=== PATIENT | male | born 1970 | race Caucasian/White ===

== ENCOUNTER 2020-11-09 11:50 | Emergency (ER) | payer SELFPAY ==
[~2020-11-09] VITALS: Ht 172.7 cm; Wt 90.4 kg
[~2020-11-09 11:50] MED LIST: DOXY100C2 PO; INSU100I13 SQ; INSU100I17 SQ; ONDA4TAB7 PO; OXYC1TAB15 PO; TAMS0.4C97 PO
[2020-11-09 12:01] VITALS: BP 178/89
--- NOTE | 2020-11-09 12:42 | PHYS DOC ---
Past Medical History Past Medical History: Depression, Diabetes-Type II, High Cholesterol, Hyp ertension Past Surgical History: Other Additional Past Surgical Histo: HERNIA SX, GROIN SX A CHILD Smoking Status: Current Every Day Smoker Alcohol Use: None Drug Use: None General Adult EDM: Chief Complaint: SKIN PROBLEM HPI: HPI: Patient is a 50 year old male with history of uncontrolled diabetes type 2, hypertension, depression, who presents to the ED today complaining of infection on the back of his head. Patient states symptoms began 3 days ago. He states he had similar symptoms 2 months ago and had to be admitted in the hospital. Patient denies any fever. He is requesting the area to be lanced. Review of Systems: Review of Systems: Constitutional: Denies fever or chills. [] : Denies dysuria. [] Musculoskeletal: Denies back pain or joint pain. [] Integument: Reports infection to the back of the head Neurologic: Denies headache, focal weakness or sensory changes. [] Psychiatric: Denies depression or anxiety. [] Heart Score: C/O Chest Pain: No Risk Factors: Risk Factors: DM, Current or recent (<one month) smoker, HTN, HLP, family history of CAD, obesity. Risk Scores: Score 0 - 3: 2.5% MACE over next 6 weeks - Discharge Home Score 4 - 6: 20.3% MACE over next 6 weeks - Admit for Clinical Observation Score 7 - 10: 72.7% MACE over next 6 weeks - Early Invasive Strategies Current Medications: Current Medications Medications (Trade) Dose Ordered Sig/Dany Start Time Stop Time Status Last Admin Dose Admin Ceftriaxone Sodium (Rocephin Im) 1 gm 1X ONCE 11/09/20 13:00 11/09/20 13:01 Doxycycline Hyclate (Vibra-Tab) 100 mg 1X ONCE 11/09/20 13:00 11/09/20 13:01 Allergies: Allergies: Allergies Coded Allergies Type Severity Reaction Last Updated Verified No Known Drug Allergies 04/28/16 No Physical Exam: PE: Constitutional: Well developed, well nourished, no acute distress, non-toxic appearance. [] Abdomen: Bowel sounds normal, soft, no tenderness, no masses, no pulsatile masses. [] Skin: Posterior scalp with an area of multiple swollen small lesions with surrounding mild cellulitis with no fluctuance. Back: No tenderness, no CVA tenderness. [] Extremities: No tenderness, no cyanosis, no clubbing, ROM intact, no edema. [] Neurologic: Alert and oriented X 3, normal motor function, normal sensory function, no focal deficits noted. [] Psychologic: Affect normal, judgement normal, mood normal. [] Current Patient Data: Vital Signs: Vital Signs Date Time Temp Pulse Resp B/P (MAP) Pulse Ox O2 Delivery O2 Flow Rate FiO2 11/09/20 12:01 98.1 100 18 178/89 (118) 96 Room Air 98.1 EKG: EKG: [] Radiology/Procedures: Radiology/Procedures: [] Course & Med Decision Making: Course & Med Decision Making Pertinent Labs and Imaging studies reviewed. (See chart for details) This is a 50-year-old noncompliant diabetic patient with history of hypertension presenting to the ED today with cellulitis on posterior scalp, there is nothing to drain on this region. I spent some time educating patient about diabetes, hypertension, and how to care for this illness especially keeping blood glucose under control. Patient showed no interest in the education. Patient does not even have insulin at home neither does he know what insulin he is supposed to use. He is not on any medicines at home. He is very aggressive verbally when I tried talking to him about the importance of taking his medicines as prescribed. He does not have a primary care doctor. Reminded him about following up with [facility] where he was referred to in June when he was hospitalized. He was given Rocephin IM in the ED and started on doxycycline which he was discharged home with the last time he was in the hospital June 2020. He was also given prescription of Bactroban ointment. Given prescription for insulin. He refused to have his glucose taken in the ED. 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 Blood pressure was 178/89. He has no recollection of what medicine he needs to be on for his blood pressure. Dragon Disclaimer: Dragon Disclaimer: This electronic medical record was generated, in whole or in part, using a voice recognition dictation system. Departure Departure Impression: Primary Impression: Cellulitis of scalp Additional Impressions: Hypertension Qualified Codes: I10 - Essential (primary) hypertension Non-compliance Disposition: 01 DC HOME SELF CARE/HOMELESS Condition: STABLE Referrals: NO PCP (PCP) follow up with [facility] Patient Instructions: Cellulitis, [id number], Hypertension Additional Instructions: You were evaluated in the emergency room and noted to have cellulitis. One thing you may consider doing is managing your blood sugars, this will help prevent some of the skin infections you keep having. Avoid shaving the back of your head until this infection clears up and then consider using electric razor as compared to straight razors. Use the prescribed medications as ordered. Please consider following up with [facility] for management of your medical conditions. Scripts Insulin Glargine,Hum.rec.anlog (LANTUS) 100 Unit/1 Ml Vial 20 UNIT SQ HS, #100 EACH Prov: CORINNA GUTIÉRREZ APRN 11/09/20 Insulin Aspart (NOVOLOG) 100 Unit/1 Ml Vial 10 UNIT SQ TIDAC, #100 EACH Prov: CORINNA GUTIÉRREZ APRN 11/09/20 Mupirocin (MUPIROCIN OINTMENT) 22 Gm Oint...g. 1 JACK TP TID for WOUND CARE, #1 EACH Prov: CORINNA GUTIÉRREZ APRN 11/09/20 Doxycycline Hyclate (DOXYCYCLINE HYCLATE) 100 Mg Tablet 1 TAB PO BID, #20 TAB Prov: CORINNA GUTIÉRREZ APRN 11/09/20 CORINNA GUTIÉRREZ APRN Nov 09, 2020 12:42
[2020-11-09] MEDS ORDERED: DOXY100T PO (12:56)
[2020-11-09] MEDS ORDERED: INSU100V8 SQ (12:56)
[2020-11-09] MEDS ORDERED: MUPI22OI2 TP (12:56)
[2020-11-09] MEDS ORDERED: INSU100V31 SQ (12:56)
[2020-11-09] MEDS ORDERED: DOXYCYCLINE HYCLATE 100 MG TABLET PO ONE (13:00)
[2020-11-09] MEDS ORDERED: cefTRIAXone IM 1 GM VIAL IM ONE (13:00)
== END 2020-11-09 13:06 | disposition home or self-care (01) ==
LOC: ER 11:50
DX: L03.811 Cellulitis of head [any part, except face] (principal); I10 Essential (primary) hypertension; F32.9 Major depressive disorder, single episode, unspecified; E11.9 Type 2 diabetes mellitus without complications; E78.00 Pure hypercholesterolemia, unspecified; F17.200 Nicotine dependence, unspecified, uncomplicated; Z98.890 Other specified postprocedural states
CPT/HCPCS: 96372; 99283; J0696

== ENCOUNTER 2021-05-22 15:40 | Inpatient (IN) | payer OTHER ==
[~2021-05-22] VITALS: Ht 176.5 cm; Wt 103.5 kg
[~2021-05-22 15:40] MED LIST changes: -DOXY100C2 PO; +DOXY100C3 PO; +DOXY100T PO; +INSU100V31 SQ; +INSU100V8 SQ; +MUPI22OI2 TP
--- NOTE | 2021-05-22 18:37 | PHYS DOC ---
Past Medical History Past Medical History: Depression, Diabetes-Type II, High Cholesterol, Hyp ertension Past Surgical History: Other Additional Past Surgical Histo: HERNIA SX, GROIN SX A CHILD Smoking Status: Current Every Day Smoker Alcohol Use: None Drug Use: None General Adult EDM: Chief Complaint: SHORTNESS OF BREATH HPI: HPI: Patient is a 50 year old male past medical history of diabetes but not currentl y on any medications presents with a chief complaint of shortness of breath. Patient was diagnosed with COVID-19 on May 14. Patient symptoms include hot and cold flashes and shortness of breath. Shortness of breath has progressively become worse since his diagnosis. Shortness of breath with exertion as well as rest. On exam patient is becoming very dyspneic while obtaining history. He has coughing spells with deep breaths. Patient is currently febrile 100.4 and his oxygen saturation 89-91% on room air. Patient is not vaccinated against COVID-19. Review of Systems: Review of Systems: Constitutional: Denies fever or chills. [] Eyes: Denies change in visual acuity. [] HENT: Denies nasal congestion or sore throat. [] Respiratory: Denies cough or shortness of breath. [] Cardiovascular: Denies chest pain or edema. [] GI: Denies abdominal pain, nausea, vomiting, bloody stools or diarrhea. [] : Denies dysuria. [] Musculoskeletal: Denies back pain or joint pain. [] Integument: Denies rash. [] Neurologic: Denies headache, focal weakness or sensory changes. [] Endocrine: Denies polyuria or polydipsia. [] Lymphatic: Denies swollen glands. [] Psychiatric: Denies depression or anxiety. [] Heart Score: C/O Chest Pain: N/A Risk Factors: Risk Factors: DM, Current or recent (<one month) smoker, HTN, HLP, family history of CAD, obesity. Risk Scores: Score 0 - 3: 2.5% MACE over next 6 weeks - Discharge Home Score 4 - 6: 20.3% MACE over next 6 weeks - Admit for Clinical Observation Score 7 - 10: 72.7% MACE over next 6 weeks - Early Invasive Strategies Allergies: Allergies: Allergies Coded Allergies Type Severity Reaction Last Updated Verified No Known Drug Allergies 04/28/16 No Physical Exam: PE: Constitutional: Well developed, well nourished, no acute distress, non-toxic appearance. [] HENT: Normocephalic, atraumatic, bilateral external ears normal, oropharynx moist, no oral exudates, nose normal. [] Eyes: PERRLA, EOMI, conjunctiva normal, no discharge. [] Neck: Normal range of motion, no tenderness, supple, no stridor. [] Cardiovascular:Heart rate regular rhythm, no murmur [] Lungs & Thorax: Bilateral breath sounds clear to auscultation [] Abdomen: Bowel sounds normal, soft, no tenderness, no masses, no pulsatile masses. [] Skin: Warm, dry, no erythema, no rash. [] Back: No tenderness, no CVA tenderness. [] Extremities: No tenderness, no cyanosis, no clubbing, ROM intact, no edema. [] Neurologic: Alert and oriented X 3, normal motor function, normal sensory function, no focal deficits noted. [] Psychologic: Affect normal, judgement normal, mood normal. [] Current Patient Data: Vital Signs: Vital Signs Date Time Temp Pulse Resp B/P (MAP) Pulse Ox O2 Delivery O2 Flow Rate FiO2 05/22/21 18:08 100.4 92 18 159/87 (111) 92 Room Air 100.4 EKG: EKG: [] Radiology/Procedures: Radiology/Procedures: [] Impression: INDICATION: Reason: shortness of breath / Spl. Instructions: / History: . COMPARISON STUDY: None. FINDINGS: Lungs: Normal lung volume. Patchy bilateral opacities Pleura: No pleural effusion or pneumothorax. Heart and Mediastinum: The cardiomediastinal silhouette is normal. The great vessels of the thorax are normal. IMPRESSION: Patchy bilateral opacities, likely multifocal infection or edema. Course & Med Decision Making: Course & Med Decision Making Pertinent Labs and Imaging studies reviewed. (See chart for details) [] Patient was evaluated for chief complaint. Work-up consisted of laboratory analysis and radiologic imaging. Patient with a positive Covid test on the eighth. Repeat Covid test done here is positive. Chest x-ray multifocal infiltrates. Patient's oxygen saturation improved to 9495% on 2 L. Patient was treated with Decadron 10 mg IV. patient admitted to the hospitalist for further evaluation and treatment. Jeanette Disclaimer: Jeanette Disclaimer: This electronic medical record was generated, in whole or in part, using a voice recognition dictation system. Departure Departure Impression: Primary Impression: COVID-19 Additional Impression: Hypoxic Disposition: 09 ADMITTED INPATIENT Admitting Physician: JERARDO Referrals: NO PCP (PCP) SHERIN MULLEN DO May 22, 2021 18:37
[2021-05-22] MEDS ORDERED: ACETAMINOPHEN 500 MG TABLET PO ONE (18:45)
[2021-05-22] MEDS ORDERED: DEXAMETHASONE SOD PHOS 4 MG/ML VIAL IVP ONE (18:45)
[2021-05-22 19:37] LABS: BASO % 0 % (0-3); EOS % 0 % (0-3); HEMATOCRIT 42.8 % (39.0-53.0); HEMOGLOBIN 14.8 g/dL (13.0-17.5); LYMPH # 1.3 x10^3/uL (1.0-4.8); LYMPH % 24 % (24-48); MEAN CORPUSCULAR HEMOGLOBIN 30 pg (25-35); MEAN CORPUSCULAR HGB CONC 35 g/dL (31-37); MEAN CORPUSCULAR VOLUME 87 fL (79-100); MONO # 0.3 x10^3/uL (0.0-1.1); MONO % 5 % (0-9); NEUT # 4.1 x10^3/uL (1.8-7.7); NEUT % 71 % (31-73); PLATELET COUNT 218 x10^3/uL (140-400); RED BLOOD COUNT 4.95 x10^6/uL (4.30-5.70); RED CELL DISTRIBUTION WIDTH 13.3 % (11.5-14.5); WHITE BLOOD COUNT 5.7 x10^3/uL (4.0-11.0)
[2021-05-22 19:53] LABS: CALCIUM 8.5 mg/dL (8.5-10.1); GFR 78.8; POTASSIUM 3.3 mmol/L (3.5-5.1)
--- NOTE | 2021-05-22 19:58 | RAD ---
XR CHEST 1V INDICATION: Reason: shortness of breath / Spl. Instructions: / History: . COMPARISON STUDY: None. FINDINGS: Lungs: Normal lung volume. Patchy bilateral opacities Pleura: No pleural effusion or pneumothorax. Heart and Mediastinum: The cardiomediastinal silhouette is normal. The great vessels of the thorax ar e normal. IMPRESSION: Patchy bilateral opacities, likely multifocal infection or edema. Electronically signed by: Isaac Magaña MD (05/22/2021 7:55 PM) [facility] CENTERKeagan
[2021-05-22 20:00] LABS: INFLUENZA A PATIENT NEGATIVE (NEGATIVE); INFLUENZA B PATIENT NEGATIVE (NEGATIVE)
[2021-05-22 20:08] LABS: ALBUMIN/GLOBULIN RATIO 0.7 (1.0-1.7); TOTAL BILIRUBIN 0.4 mg/dL (0.2-1.0); TOTAL PROTEIN 7.5 g/dL (6.4-8.2)
[2021-05-22] MEDS ORDERED: ONDANSETRON PF 4 MG/2 ML VIAL. IVP PRN (22:00)
[2021-05-22] MEDS ORDERED: ACETAMINOPHEN 325 MG TABLET. PO PRN (22:00)
[2021-05-22 22:30] VITALS: BP 158/93
[2021-05-23] MEDS ORDERED: [UNRECOGNIZED DRUG - REMARK] (00:10)
[2021-05-23 03:00] VITALS: BP 137/77
[2021-05-23 07:00] VITALS: BP 167/92
--- NOTE | 2021-05-23 07:44 | CONS ---
DATE OF CONSULTATION: 05/23/2021 I was asked to see this 50-year-old gentleman for acute respiratory failure, COVID-19 pneumonia. HISTORY OF PRESENT ILLNESS: He is a lifelong nonsmoker. He does not have any lung disease. He has not had sleep study. He has had shortness of breath, cough for the past 2 weeks. His COVID test was positive on 05/14. His shortness of breath has been getting worse. He has cough. He has had fever and chills. PAST MEDICAL HISTORY: Diabetes mellitus, hypertension, hyperlipidemia. ALLERGIES: No known drug allergies. MEDICATIONS: Currently, he is on Tylenol. Dexamethasone was given. SOCIAL HISTORY: He is a lifelong nonsmoker. FAMILY HISTORY: No history of lung disease. REVIEW OF SYSTEMS: As mentioned as above, other systems otherwise negative. PHYSICAL EXAMINATION: GENERAL: This is an overweight gentleman. He is not in distress. VITAL SIGNS: His O2 saturation on 2 liters of oxygen is 95%, respiratory rate 16, heart rate 80, blood pressure 137/77, temperature 99. HEENT: Normocephalic, atraumatic. CARDIOVASCULAR: Regular rate and rhythm. CHEST INSPECTION: There is no accessory muscle use. ABDOMEN: Obese. EXTREMITIES: There is no edema. SKIN: No rash. NEUROLOGIC: Alert and oriented. LABORATORY DATA: I reviewed the following lab data: Chest x-ray shows bilateral infiltrate. COVID rapid test was positive. Influenza A and B negative. Sodium 135, potassium 3.3, chloride 99, CO2 of 27, BUN 11, creatinine 1, AST 24, ALT 25, alkaline phosphatase 103. WBC 5.7, hemoglobin 14.8, platelet 218. IMPRESSION: 1. Abnormal chest x-ray. 2. COVID-19 pneumonia. 3. Obesity, probable obstructive sleep apnea-hypopnea syndrome. 4. Hypertension. 5. Diabetes mellitus. PLAN AND RECOMMENDATIONS: 1. Titrate FiO2 to keep O2 saturation 92%. 2. Continue dexamethasone. He is out of the window for remdesivir. 3. I will check D-dimer. If elevated, he would need CT angiogram. 4. We will check CRP. 5. Lovenox for DVT prophylaxis. 6. Pepcid for stress ulcer prophylaxis. 7. The findings and recommendations were discussed with the patient. Thank you very much for allowing me to participate in the care of this very nice gentleman. ASHA/MARLENA/TARA DR: Lynn TID: [id number]
[2021-05-23] MEDS ORDERED: POTASSIUM CHLORIDE 20 MEQ TABLET.ER. PO ONE (09:45)
[2021-05-23] MEDS ORDERED: DEXTROSE 50% 25 GM / 50ML DISP.SYRIN. IV PRN (09:45)
[2021-05-23] MEDS: MUPIROCIN 2 % OINTMENT 22GM TUBE. TP SCH ×3 (10:00→20:38)
[2021-05-23] MEDS: ENOXAPARIN 40 MG/0.4 ML SYRINGE. SQ SCH ×2 (10:44→20:38)
[2021-05-23] MEDS: FAMOTIDINE 20 MG TABLET. PO SCH ×2 (10:45→20:37)
[2021-05-23 11:00] VITALS: BP 173/92
[2021-05-23] MEDS: INSULIN LISPRO 300 UNITS/3 ML VIAL. SQ SCH ×2 (12:59→17:11)
--- NOTE | 2021-05-23 14:22 | PDOC ---
GENERAL General: History and physical [id number] VITAL SIGNS Vital Signs/I&O: Vital Signs Date Time Temp Pulse Resp B/P (MAP) Pulse Ox O2 Delivery O2 Flow Rate FiO2 05/23/21 11:00 99.0 95 20 173/92 (119) 91 Nasal Cannula 2.0 99.0 I & O 05/22/21 05/22/21 05/23/21 15:00 23:00 07:00 Intake Total 500 ml Balance 500 ml ALLERGIES Allergies: Allergies Coded Allergies Type Severity Reaction Last Updated Verified No Known Drug Allergies 04/28/16 No MEDS Medications: Current Medications Medications (Trade) Dose Ordered Sig/Dany Route PRN Reason Start Time Stop Time Status Last Admin Dose Admin Dexamethasone Sodium Phosphate (Decadron) 10 mg 1X ONCE IVP 05/22/21 18:45 05/22/21 18:46 DC 05/22/21 19:34 Acetaminophen (Tylenol) 1,000 mg 1X ONCE PO 05/22/21 18:45 05/22/21 18:46 DC 05/22/21 19:33 Famotidine (Pepcid) 20 mg BID PO 05/23/21 09:00 05/23/21 10:45 Enoxaparin Sodium (Lovenox 40mg Syringe) 40 mg Q12HR SQ 05/23/21 09:00 05/23/21 10:44 Insulin Human Lispro (HumaLOG) 0-7 UNITS TIDWMEALS SQ 05/23/21 12:00 05/23/21 12:59 Mupirocin (Bactroban) 1 sari TID TP 05/23/21 10:00 05/23/21 10:00 Potassium Chloride (Klor-Con) 20 meq 1X ONCE PO 05/23/21 09:45 05/23/21 09:58 DC 05/23/21 10:46 LAB Lab: Laboratory Tests Test 05/22/21 19:25 05/22/21 19:28 05/23/21 08:38 05/23/21 09:00 White Blood Count 5.7 x10^3/uL (4.0-11.0) Red Blood Count 4.95 x10^6/uL (4.30-5.70) Hemoglobin 14.8 g/dL (13.0-17.5) Hematocrit 42.8 % (39.0-53.0) Mean Corpuscular Volume 87 fL (79-100) Mean Corpuscular Hemoglobin 30 pg (25-35) Mean Corpuscular Hemoglobin Concent 35 g/dL (31-37) Red Cell Distribution Width 13.3 % (11.5-14.5) Platelet Count 218 x10^3/uL (140-400) Neutrophils (%) (Auto) 71 % (31-73) Lymphocytes (%) (Auto) 24 % (24-48) Monocytes (%) (Auto) 5 % (0-9) Eosinophils (%) (Auto) 0 % (0-3) Basophils (%) (Auto) 0 % (0-3) Neutrophils # (Auto) 4.1 x10^3/uL (1.8-7.7) Lymphocytes # (Auto) 1.3 x10^3/uL (1.0-4.8) Monocytes # (Auto) 0.3 x10^3/uL (0.0-1.1) Eosinophils # (Auto) 0.0 x10^3/uL (0.0-0.7) Basophils # (Auto) 0.0 x10^3/uL (0.0-0.2) Sodium Level 135 mmol/L (136-145) L Potassium Level 3.3 mmol/L (3.5-5.1) L Chloride Level 99 mmol/L (98-107) Carbon Dioxide Level 27 mmol/L (21-32) Anion Gap 9 (6-14) Blood Urea Nitrogen 11 mg/dL (8-26) Creatinine 1.0 mg/dL (0.7-1.3) Estimated GFR (Cockcroft-Gault) 78.8 BUN/Creatinine Ratio 11 (6-20) Glucose Level 273 mg/dL (70-99) H Calcium Level 8.5 mg/dL (8.5-10.1) Total Bilirubin 0.4 mg/dL (0.2-1.0) Aspartate Amino Transferase (AST) 24 U/L (15-37) Alanine Aminotransferase (ALT) 25 U/L (16-63) Alkaline Phosphatase 103 U/L (46-116) Total Protein 7.5 g/dL (6.4-8.2) Albumin 3.0 g/dL (3.4-5.0) L Albumin/Globulin Ratio 0.7 (1.0-1.7) L Influenza Type A Antigen Negative (NEGATIVE) Influenza Type B Antigen Negative (NEGATIVE) SARS-CoV-2 Antigen (Rapid) Positive (NEGATIVE) *A Glucose (Fingerstick) 293 mg/dL (70-99) H D-Dimer (Lilian) 0.41 ug/mlFEU (0.00-0.50) C-Reactive Protein, Quantitative 201.7 mg/L (0-3.3) H Test 05/23/21 12:17 Glucose (Fingerstick) 317 mg/dL (70-99) H Laboratory Tests 05/22/21 19:25 Laboratory Tests 05/22/21 19:25 Justifications for Admission Other Justification BROOK MCCLAIN MD May 23, 2021 14:22
--- NOTE | 2021-05-23 14:59 | HP ---
ADMIT DATE: 05/22/2021 HISTORY OF PRESENT ILLNESS: This patient is a 50-year-old man who does not have a continuity source of primary care due to lack of medical insurance. He was diagnosed with COVID on 05/14. His 6-year-old daughter brought it home from school and everyone in the house has become ill including six children and 3 adults. Everybody is on the mend, but his symptoms now 10 days and worsened with increasing cough, congestion, wheezing and he just did not feel that he could keep on top of his respiratory symptoms. I am seeing him now nearly 24 hours after admission and he is feeling better with oxygen supplementation. He is happy that his fever has defervesced some as the high fevers were causing quite a bit of discomfort as well. He has also noted loose stools. The patient tells me that he was diagnosed with diabetes one year ago, but trying to find medical insurance that covered the insulin well, it was a challenge and so he has mostly been off of his medications. He was not aware of the ability to buy insulin at [facility] without a prescription. He denies any nausea, vomiting, chest pain, or palpitations. He has been up and moving about the room and his wheezing and dyspnea has improved with low dose oxygen supplementation. All other systems are reviewed and negative. PAST MEDICAL HISTORY: Diabetes, diagnosed 1 year ago for which she has not been taking any treatments regularly. MEDICATIONS: Please see the medication reconciliation form. SOCIAL HISTORY: The patient is . He has a blended family. No one in the house is vaccinated except his dxyqvi-je-gay who also developed COVID, but very mild symptoms. The patient denies any alcohol or illicit drugs. He works as an [id number] trash truck driver and is careful to mask wherever he is going. FAMILY HISTORY: Reviewed in full and noncontributory to the present illness. PHYSICAL EXAMINATION: VITAL SIGNS: Reviewed since admission and are notable for T-max of 99, respiratory rate of 18-22, heart rate is in the 80s-90s and regular. Oxygenation is 94-96% on 2 liters. Blood pressure is elevated between 150-170/90. GENERAL: He is a pleasant 50-year-old man, alert and oriented x 3, in no acute distress. HEENT: Unremarkable for acute abnormality. NECK: Soft and supple. No adenopathy or thyromegaly noted. CHEST: Bilateral equal air entry, though diminished throughout. Inspiratory and expiratory wheezes noted at the bilateral bases. HEART: S1, S2 normal, tachycardic. No murmurs or gallops are noted. ABDOMEN: Soft, nontender, nondistended. No masses or organomegaly noted. EXTREMITIES: Unremarkable for acute abnormality. LABS AND OTHER STUDIES: Admission white count is 5.7, hemoglobin is 14.8, platelet count is 218. Chemistry panel notable for a potassium level of 3.3 on admission. Glucose is 273 on admission, 317 this morning. Rapid COVID antigen is positive. Influenza A and B are negative. Chest x-ray is notable for patchy bilateral opacities consistent with COVID pneumonia. ASSESSMENT AND PLAN: Impression: A 50-year-old man now 10 days in since his COVID diagnosis, admitted with escalating symptoms including high fever and respiratory distress. He has done well with low dose oxygen supplementation. He is not meeting criteria for remdesivir given the duration since diagnosis and low oxygen requirements. He is also a poor candidate for steroids given his uncontrolled diabetes. We have restarted his insulin and will need to escalate those doses. Hopefully, depending on his progress, he may even be discharged as early as tomorrow. We are encouraging hydration and ambulation. He does not need anything else for DVT prophylaxis. The patient is a full code. LESA/MARS POWELL: Doyle TID: [id number] MTDD
[2021-05-23 15:00] VITALS: BP 161/85
[2021-05-23 19:00] VITALS: BP 152/83
[2021-05-23] MEDS: HYDROcodone/APAP 5/325MG 1 TAB TABLET PO PRN (20:37)
[2021-05-23] MEDS ORDERED: INSULIN GLARGINE SYRINGE. SQ SCH (21:00)
[2021-05-23 23:00] VITALS: BP 142/77
[2021-05-24 03:00] VITALS: BP 144/80
[2021-05-24 06:33] LABS: BASO % 0 % (0-3); EOS % 0 % (0-3); LYMPH # 1.4 x10^3/uL (1.0-4.8); LYMPH % 14 % (24-48); MEAN CORPUSCULAR HEMOGLOBIN 30 pg (25-35); MEAN CORPUSCULAR HGB CONC 34 g/dL (31-37); MEAN CORPUSCULAR VOLUME 88 fL (79-100); MONO # 0.4 x10^3/uL (0.0-1.1); MONO % 4 % (0-9); NEUT # 8.2 x10^3/uL (1.8-7.7); NEUT % 82 % (31-73); PLATELET COUNT 317 x10^3/uL (140-400); RED CELL DISTRIBUTION WIDTH 13.3 % (11.5-14.5); WHITE BLOOD COUNT 10.1 x10^3/uL (4.0-11.0)
[2021-05-24 06:57] LABS: ALBUMIN 2.7 g/dL (3.4-5.0); ALBUMIN/GLOBULIN RATIO 0.6 (1.0-1.7); CREATININE 1.1 mg/dL (0.7-1.3); GFR 70.6; POTASSIUM 4.5 mmol/L (3.5-5.1); TOTAL BILIRUBIN 0.4 mg/dL (0.2-1.0); TOTAL PROTEIN 7.4 g/dL (6.4-8.2)
[2021-05-24 07:00] VITALS: BP 152/90
--- NOTE | 2021-05-24 07:25 | PDOC ---
PULMONARY PROGRESS NOTES DATE: 05/24/21 TIME: 07:24 Subjective feels better has cough on 02 5lpm Vitals Vital Signs Date Time Temp Pulse Resp B/P (MAP) Pulse Ox O2 Delivery O2 Flow Rate FiO2 05/24/21 03:00 99.4 87 18 144/80 (101) 91 Nasal Cannula 2.0 99.4 Comments on no distress rrr no accessory muscle use abd obese Labs Laboratory Tests Test 05/22/21 19:25 05/22/21 19:28 05/23/21 08:38 05/23/21 09:00 White Blood Count 5.7 x10^3/uL (4.0-11.0) Red Blood Count 4.95 x10^6/uL (4.30-5.70) Hemoglobin 14.8 g/dL (13.0-17.5) Hematocrit 42.8 % (39.0-53.0) Mean Corpuscular Volume 87 fL (79-100) Mean Corpuscular Hemoglobin 30 pg (25-35) Mean Corpuscular Hemoglobin Concent 35 g/dL (31-37) Red Cell Distribution Width 13.3 % (11.5-14.5) Platelet Count 218 x10^3/uL (140-400) Neutrophils (%) (Auto) 71 % (31-73) Lymphocytes (%) (Auto) 24 % (24-48) Monocytes (%) (Auto) 5 % (0-9) Eosinophils (%) (Auto) 0 % (0-3) Basophils (%) (Auto) 0 % (0-3) Neutrophils # (Auto) 4.1 x10^3/uL (1.8-7.7) Lymphocytes # (Auto) 1.3 x10^3/uL (1.0-4.8) Monocytes # (Auto) 0.3 x10^3/uL (0.0-1.1) Eosinophils # (Auto) 0.0 x10^3/uL (0.0-0.7) Basophils # (Auto) 0.0 x10^3/uL (0.0-0.2) Sodium Level 135 mmol/L (136-145) Potassium Level 3.3 mmol/L (3.5-5.1) Chloride Level 99 mmol/L (98-107) Carbon Dioxide Level 27 mmol/L (21-32) Anion Gap 9 (6-14) Blood Urea Nitrogen 11 mg/dL (8-26) Creatinine 1.0 mg/dL (0.7-1.3) Estimated GFR (Cockcroft-Gault) 78.8 BUN/Creatinine Ratio 11 (6-20) Glucose Level 273 mg/dL (70-99) Calcium Level 8.5 mg/dL (8.5-10.1) Total Bilirubin 0.4 mg/dL (0.2-1.0) Aspartate Amino Transf (AST/SGOT) 24 U/L (15-37) Alanine Aminotransferase (ALT/SGPT) 25 U/L (16-63) Alkaline Phosphatase 103 U/L (46-116) Total Protein 7.5 g/dL (6.4-8.2) Albumin 3.0 g/dL (3.4-5.0) Albumin/Globulin Ratio 0.7 (1.0-1.7) Influenza Type A Antigen Negative (NEGATIVE) Influenza Type B Antigen Negative (NEGATIVE) SARS-CoV-2 Antigen (Rapid) Positive (NEGATIVE) Glucose (Fingerstick) 293 mg/dL (70-99) D-Dimer (Lilian) 0.41 ug/mlFEU (0.00-0.50) C-Reactive Protein, Quantitative 201.7 mg/L (0-3.3) Test 05/23/21 12:17 05/23/21 17:06 05/23/21 21:00 05/24/21 06:15 Glucose (Fingerstick) 317 mg/dL (70-99) 259 mg/dL (70-99) 259 mg/dL (70-99) White Blood Count 10.1 x10^3/uL (4.0-11.0) Red Blood Count 5.00 x10^6/uL (4.30-5.70) Hemoglobin 15.0 g/dL (13.0-17.5) Hematocrit 44.0 % (39.0-53.0) Mean Corpuscular Volume 88 fL (79-100) Mean Corpuscular Hemoglobin 30 pg (25-35) Mean Corpuscular Hemoglobin Concent 34 g/dL (31-37) Red Cell Distribution Width 13.3 % (11.5-14.5) Platelet Count 317 x10^3/uL (140-400) Neutrophils (%) (Auto) 82 % (31-73) Lymphocytes (%) (Auto) 14 % (24-48) Monocytes (%) (Auto) 4 % (0-9) Eosinophils (%) (Auto) 0 % (0-3) Basophils (%) (Auto) 0 % (0-3) Neutrophils # (Auto) 8.2 x10^3/uL (1.8-7.7) Lymphocytes # (Auto) 1.4 x10^3/uL (1.0-4.8) Monocytes # (Auto) 0.4 x10^3/uL (0.0-1.1) Eosinophils # (Auto) 0.0 x10^3/uL (0.0-0.7) Basophils # (Auto) 0.0 x10^3/uL (0.0-0.2) Sodium Level 138 mmol/L (136-145) Potassium Level 4.5 mmol/L (3.5-5.1) Chloride Level 102 mmol/L (98-107) Carbon Dioxide Level 26 mmol/L (21-32) Anion Gap 10 (6-14) Blood Urea Nitrogen 19 mg/dL (8-26) Creatinine 1.1 mg/dL (0.7-1.3) Estimated GFR (Cockcroft-Gault) 70.6 BUN/Creatinine Ratio 17 (6-20) Glucose Level 257 mg/dL (70-99) Calcium Level 9.0 mg/dL (8.5-10.1) Total Bilirubin 0.4 mg/dL (0.2-1.0) Aspartate Amino Transf (AST/SGOT) 31 U/L (15-37) Alanine Aminotransferase (ALT/SGPT) 25 U/L (16-63) Alkaline Phosphatase 103 U/L (46-116) Total Protein 7.4 g/dL (6.4-8.2) Albumin 2.7 g/dL (3.4-5.0) Albumin/Globulin Ratio 0.6 (1.0-1.7) Laboratory Tests Test 05/23/21 08:38 05/23/21 09:00 05/23/21 12:17 05/23/21 17:06 Glucose (Fingerstick) 293 mg/dL (70-99) 317 mg/dL (70-99) 259 mg/dL (70-99) D-Dimer (Lilian) 0.41 ug/mlFEU (0.00-0.50) C-Reactive Protein, Quantitative 201.7 mg/L (0-3.3) Test 05/23/21 21:00 05/24/21 06:15 Glucose (Fingerstick) 259 mg/dL (70-99) White Blood Count 10.1 x10^3/uL (4.0-11.0) Red Blood Count 5.00 x10^6/uL (4.30-5.70) Hemoglobin 15.0 g/dL (13.0-17.5) Hematocrit 44.0 % (39.0-53.0) Mean Corpuscular Volume 88 fL (79-100) Mean Corpuscular Hemoglobin 30 pg (25-35) Mean Corpuscular Hemoglobin Concent 34 g/dL (31-37) Red Cell Distribution Width 13.3 % (11.5-14.5) Platelet Count 317 x10^3/uL (140-400) Neutrophils (%) (Auto) 82 % (31-73) Lymphocytes (%) (Auto) 14 % (24-48) Monocytes (%) (Auto) 4 % (0-9) Eosinophils (%) (Auto) 0 % (0-3) Basophils (%) (Auto) 0 % (0-3) Neutrophils # (Auto) 8.2 x10^3/uL (1.8-7.7) Lymphocytes # (Auto) 1.4 x10^3/uL (1.0-4.8) Monocytes # (Auto) 0.4 x10^3/uL (0.0-1.1) Eosinophils # (Auto) 0.0 x10^3/uL (0.0-0.7) Basophils # (Auto) 0.0 x10^3/uL (0.0-0.2) Sodium Level 138 mmol/L (136-145) Potassium Level 4.5 mmol/L (3.5-5.1) Chloride Level 102 mmol/L (98-107) Carbon Dioxide Level 26 mmol/L (21-32) Anion Gap 10 (6-14) Blood Urea Nitrogen 19 mg/dL (8-26) Creatinine 1.1 mg/dL (0.7-1.3) Estimated GFR (Cockcroft-Gault) 70.6 BUN/Creatinine Ratio 17 (6-20) Glucose Level 257 mg/dL (70-99) Calcium Level 9.0 mg/dL (8.5-10.1) Total Bilirubin 0.4 mg/dL (0.2-1.0) Aspartate Amino Transf (AST/SGOT) 31 U/L (15-37) Alanine Aminotransferase (ALT/SGPT) 25 U/L (16-63) Alkaline Phosphatase 103 U/L (46-116) Total Protein 7.4 g/dL (6.4-8.2) Albumin 2.7 g/dL (3.4-5.0) Albumin/Globulin Ratio 0.6 (1.0-1.7) Medications Active Scripts Medications Dose Route/Sig Max Daily Dose Days Date Category [reports no home meds] 05/23/21 Reported Lantus (Insulin Glargine,Hum.rec.anlog) 100 Unit/1 Ml Vial 20 Unit SQ HS 11/09/20 Rx Novolog (Insulin Aspart) 100 Unit/1 Ml Vial 10 Unit SQ TIDAC 11/09/20 Rx Mupirocin Ointment (Mupirocin) 22 Gm Oint...g. 1 Devendra TP TID 11/09/20 Rx Novolog Flexpen (Insulin Aspart) 100 Unit/1 Ml Insuln.pen 10 Units SQ TIDAC 06/22/20 Reported Lantus Solostar (Insulin Glargine,Hum.rec.anlog) 100 Unit/1 Ml Insuln.pen 20 Unit SQ QHS 06/22/20 Reported Impression . IMPRESSION: 1. Abnormal chest x-ray. 2. COVID-19 pneumonia. 3. Obesity, probable obstructive sleep apnea-hypopnea syndrome. 4. Hypertension. 5. Diabetes mellitus. Plan . PLAN AND RECOMMENDATIONS: 1. Titrate FiO2 to keep O2 saturation 92%. 2. Continue dexamethasone. He is out of the window for remdesivir. 3. D-dimer. nl 5. Lovenox for DVT prophylaxis. 6. Pepcid for stress ulcer prophylaxis. 7. The findings and recommendations were discussed with the patient. VIRIDIANA PUCKETT MD May 24, 2021 07:25
[2021-05-24] MEDS: ENOXAPARIN 40 MG/0.4 ML SYRINGE. SQ SCH ×2 (08:36→21:11)
[2021-05-24] MEDS: FAMOTIDINE 20 MG TABLET. PO SCH ×2 (08:36→21:11)
[2021-05-24] MEDS: MUPIROCIN 2 % OINTMENT 22GM TUBE. TP SCH ×3 (08:36→21:00)
[2021-05-24] MEDS: INSULIN LISPRO 300 UNITS/3 ML VIAL. SQ SCH ×3 (08:46→17:44)
[2021-05-24] MEDS: HYDROcodone/APAP 5/325MG 1 TAB TABLET PO PRN (08:49)
[2021-05-24 11:00] VITALS: BP 160/87
--- NOTE | 2021-05-24 11:20 | PDOC ---
GENERAL General: Patient examined chart reviewed today is hospital day 3 for this patient with acute hypoxic respiratory failure secondary to COVID-19 pneumonia. He is feeling worse overnight with more cough, congestion, sputum production, and dyspnea. He has come up on his oxygen requirements now at 5 L nasal cannula. We will augment his cough regimen appreciate subspecialty support. Sugar levels are high with his infection and the steroid treatment will increase his glargine dose. All other systems reviewed and negative Problems: (1) COVID-19 (2) Hypoxic (3) Diabetes mellitus with hyperglycemia VITAL SIGNS Vital Signs/I&O: Vital Signs Date Time Temp Pulse Resp B/P (MAP) Pulse Ox O2 Delivery O2 Flow Rate FiO2 05/24/21 09:30 Nasal Cannula 5.0 05/24/21 07:00 99.9 99 18 152/90 (110) 90 99.9 I & O 05/23/21 05/23/21 05/24/21 15:00 23:00 07:00 Intake Total 700 ml Output Total 400 ml 275 ml Balance -400 ml -275 ml 700 ml In general patient is sitting up in his bed coughing vigorously uncomfortable from dyspnea and cough HEENT exam is unremarkable for acute abnormality Chest is notable for bilateral equal air entry though diminished throughout fine inspiratory and expiratory crackles noted at the bilateral bases Heart S1-S2 normal regular rate and rhythm no murmurs or gallops are noted Abdomen soft nontender nondistended no masses organomegaly noted Extremity exam is unremarkable for acute abnormality ALLERGIES Allergies: Allergies Coded Allergies Type Severity Reaction Last Updated Verified No Known Drug Allergies 04/28/16 No MEDS Medications: Current Medications Medications (Trade) Dose Ordered Sig/Dany Start Time Stop Time Status Last Admin Dose Admin Acetaminophen (Tylenol) 650 mg PRN Q4HRS PRN 05/22/21 22:00 05/23/21 21:59 DC Acetaminophen/ Hydrocodone Bitart (Lortab 5/325) 1 tab PRN Q4HRS PRN 05/23/21 16:45 05/24/21 08:49 Benzonatate (Tessalon Perle) 100 mg [id number] 05/24/21 14:00 Dexamethasone Sodium Phosphate (Decadron) 10 mg 1X ONCE 05/22/21 18:45 05/22/21 18:46 DC 05/22/21 19:34 Dextrose (Dextrose 50%-Water Syringe) 12.5 gm PRN Q15MIN PRN 05/23/21 09:45 Enoxaparin Sodium (Lovenox 40mg Syringe) 40 mg Q12HR 05/23/21 09:00 05/24/21 08:36 Famotidine (Pepcid) 20 mg BID 05/23/21 09:00 05/24/21 08:36 Guaifenesin/ Codeine Phosphate (Robitussin Ac) 5 ml PRN Q6HRS PRN 05/24/21 11:00 Insulin Glargine (Lantus Syringe) 30 unit HS 05/24/21 21:00 Insulin Human Lispro (HumaLOG) 0-7 UNITS TIDWMEALS 05/23/21 12:00 05/24/21 08:46 Mupirocin (Bactroban) 1 sari TID 05/23/21 10:00 05/24/21 08:36 Ondansetron HCl (Zofran) 4 mg PRN Q8HRS PRN 05/22/21 22:00 05/23/21 21:59 DC Potassium Chloride (Klor-Con) 20 meq 1X ONCE 05/23/21 09:45 05/23/21 09:58 DC 05/23/21 10:46 Current Medications Medications (Trade) Dose Ordered Sig/Dany Route PRN Reason Start Time Stop Time Status Last Admin Dose Admin Insulin Human Lispro (HumaLOG) 0-7 UNITS TIDWMEALS SQ 05/23/21 12:00 05/24/21 08:46 Insulin Glargine (Lantus Syringe) 20 unit HS SQ 05/23/21 21:00 05/24/21 10:51 DC 05/23/21 21:12 Acetaminophen/ Hydrocodone Bitart (Lortab 5/325) 1 tab PRN Q4HRS PRN PO PAIN 05/23/21 16:45 05/24/21 08:49 LAB Lab: Laboratory Tests Test 05/23/21 12:17 05/23/21 17:06 05/23/21 21:00 05/24/21 06:15 Glucose (Fingerstick) 317 mg/dL (70-99) H 259 mg/dL (70-99) H 259 mg/dL (70-99) H White Blood Count 10.1 x10^3/uL (4.0-11.0) Red Blood Count 5.00 x10^6/uL (4.30-5.70) Hemoglobin 15.0 g/dL (13.0-17.5) Hematocrit 44.0 % (39.0-53.0) Mean Corpuscular Volume 88 fL (79-100) Mean Corpuscular Hemoglobin 30 pg (25-35) Mean Corpuscular Hemoglobin Concent 34 g/dL (31-37) Red Cell Distribution Width 13.3 % (11.5-14.5) Platelet Count 317 x10^3/uL (140-400) Neutrophils (%) (Auto) 82 % (31-73) H Lymphocytes (%) (Auto) 14 % (24-48) L Monocytes (%) (Auto) 4 % (0-9) Eosinophils (%) (Auto) 0 % (0-3) Basophils (%) (Auto) 0 % (0-3) Neutrophils # (Auto) 8.2 x10^3/uL (1.8-7.7) H Lymphocytes # (Auto) 1.4 x10^3/uL (1.0-4.8) Monocytes # (Auto) 0.4 x10^3/uL (0.0-1.1) Eosinophils # (Auto) 0.0 x10^3/uL (0.0-0.7) Basophils # (Auto) 0.0 x10^3/uL (0.0-0.2) Sodium Level 138 mmol/L (136-145) Potassium Level 4.5 mmol/L (3.5-5.1) Chloride Level 102 mmol/L (98-107) Carbon Dioxide Level 26 mmol/L (21-32) Anion Gap 10 (6-14) Blood Urea Nitrogen 19 mg/dL (8-26) Creatinine 1.1 mg/dL (0.7-1.3) Estimated GFR (Cockcroft-Gault) 70.6 BUN/Creatinine Ratio 17 (6-20) Glucose Level 257 mg/dL (70-99) H Calcium Level 9.0 mg/dL (8.5-10.1) Total Bilirubin 0.4 mg/dL (0.2-1.0) Aspartate Amino Transferase (AST) 31 U/L (15-37) Alanine Aminotransferase (ALT) 25 U/L (16-63) Alkaline Phosphatase 103 U/L (46-116) Total Protein 7.4 g/dL (6.4-8.2) Albumin 2.7 g/dL (3.4-5.0) L Albumin/Globulin Ratio 0.6 (1.0-1.7) L Test 05/24/21 07:49 Glucose (Fingerstick) 216 mg/dL (70-99) H Laboratory Tests 05/24/21 06:15 Laboratory Tests 05/24/21 06:15 ASSESSMENT & PLAN A&P Plan as noted above This note was created using [employer] and may have omissions and/or errors due to the nature of real-time voice therapist physical. Justifications for Admission Other Justification BROOK MCCLAIN MD May 24, 2021 11:20
[2021-05-24] MEDS: guaiFENesin/CODEINE 100mg/10mg 5 ML LIQUID PO PRN ×2 (11:32→17:43)
[2021-05-24] MEDS: DEXAMETHASONE SOD PHOS 4 MG/ML VIAL IVP SCH (11:32)
[2021-05-24 15:00] VITALS: BP 160/87
[2021-05-24] MEDS: BENZONATATE 100 MG CAPSULE. PO SCH ×2 (15:33→21:11)
[2021-05-24 19:00] VITALS: BP 153/80
--- NOTE | 2021-05-24 19:36 | NUR ---
Paged Dr. Encarnacion for blood sugar of 372 around 1730. Patient received at the 7 per sliding scale but no additional insulin since this RN did not receive a call back or orders.
[2021-05-24] MEDS ORDERED: INSULIN LISPRO 300 UNITS/3 ML VIAL. SQ ONE (21:00)
[2021-05-24] MEDS: INSULIN GLARGINE SYRINGE. SQ SCH (21:12)
[2021-05-24 23:00] VITALS: BP 152/95
[2021-05-25 03:00] VITALS: BP 139/85
[2021-05-25 07:00] VITALS: BP 148/85
--- NOTE | 2021-05-25 07:41 | PDOC ---
PULMONARY PROGRESS NOTES DATE: 05/25/21 TIME: 07:40 Subjective Patient not more short of air Vitals Vital Signs Date Time Temp Pulse Resp B/P (MAP) Pulse Ox O2 Delivery O2 Flow Rate FiO2 05/25/21 03:00 98.1 69 20 139/85 (103) 93 Nasal Cannula 5.0 98.1 Comments on 02 no distress rrr no accessory muscle use abd obese Labs Laboratory Tests Test 05/23/21 08:38 05/23/21 09:00 05/23/21 12:17 05/23/21 17:06 Glucose (Fingerstick) 293 mg/dL (70-99) 317 mg/dL (70-99) 259 mg/dL (70-99) D-Dimer (Lilian) 0.41 ug/mlFEU (0.00-0.50) C-Reactive Protein, Quantitative 201.7 mg/L (0-3.3) Test 05/23/21 21:00 05/24/21 06:15 05/24/21 07:49 05/24/21 12:37 Glucose (Fingerstick) 259 mg/dL (70-99) 216 mg/dL (70-99) 296 mg/dL (70-99) White Blood Count 10.1 x10^3/uL (4.0-11.0) Red Blood Count 5.00 x10^6/uL (4.30-5.70) Hemoglobin 15.0 g/dL (13.0-17.5) Hematocrit 44.0 % (39.0-53.0) Mean Corpuscular Volume 88 fL (79-100) Mean Corpuscular Hemoglobin 30 pg (25-35) Mean Corpuscular Hemoglobin Concent 34 g/dL (31-37) Red Cell Distribution Width 13.3 % (11.5-14.5) Platelet Count 317 x10^3/uL (140-400) Neutrophils (%) (Auto) 82 % (31-73) Lymphocytes (%) (Auto) 14 % (24-48) Monocytes (%) (Auto) 4 % (0-9) Eosinophils (%) (Auto) 0 % (0-3) Basophils (%) (Auto) 0 % (0-3) Neutrophils # (Auto) 8.2 x10^3/uL (1.8-7.7) Lymphocytes # (Auto) 1.4 x10^3/uL (1.0-4.8) Monocytes # (Auto) 0.4 x10^3/uL (0.0-1.1) Eosinophils # (Auto) 0.0 x10^3/uL (0.0-0.7) Basophils # (Auto) 0.0 x10^3/uL (0.0-0.2) Sodium Level 138 mmol/L (136-145) Potassium Level 4.5 mmol/L (3.5-5.1) Chloride Level 102 mmol/L (98-107) Carbon Dioxide Level 26 mmol/L (21-32) Anion Gap 10 (6-14) Blood Urea Nitrogen 19 mg/dL (8-26) Creatinine 1.1 mg/dL (0.7-1.3) Estimated GFR (Cockcroft-Gault) 70.6 BUN/Creatinine Ratio 17 (6-20) Glucose Level 257 mg/dL (70-99) Calcium Level 9.0 mg/dL (8.5-10.1) Total Bilirubin 0.4 mg/dL (0.2-1.0) Aspartate Amino Transf (AST/SGOT) 31 U/L (15-37) Alanine Aminotransferase (ALT/SGPT) 25 U/L (16-63) Alkaline Phosphatase 103 U/L (46-116) Total Protein 7.4 g/dL (6.4-8.2) Albumin 2.7 g/dL (3.4-5.0) Albumin/Globulin Ratio 0.6 (1.0-1.7) Test 05/24/21 16:49 05/24/21 20:29 05/24/21 22:54 Glucose (Fingerstick) 372 mg/dL (70-99) 393 mg/dL (70-99) 264 mg/dL (70-99) Laboratory Tests Test 05/24/21 07:49 05/24/21 12:37 05/24/21 16:49 05/24/21 20:29 Glucose (Fingerstick) 216 mg/dL (70-99) 296 mg/dL (70-99) 372 mg/dL (70-99) 393 mg/dL (70-99) Test 05/24/21 22:54 Glucose (Fingerstick) 264 mg/dL (70-99) Medications Active Scripts Medications Dose Route/Sig Max Daily Dose Days Date Category [reports no home meds] 05/23/21 Reported Lantus (Insulin Glargine,Hum.rec.anlog) 100 Unit/1 Ml Vial 20 Unit SQ HS 11/09/20 Rx Novolog (Insulin Aspart) 100 Unit/1 Ml Vial 10 Unit SQ TIDAC 11/09/20 Rx Mupirocin Ointment (Mupirocin) 22 Gm Oint...g. 1 Devendra TP TID 11/09/20 Rx Novolog Flexpen (Insulin Aspart) 100 Unit/1 Ml Insuln.pen 10 Units SQ TIDAC 06/22/20 Reported Lantus Solostar (Insulin Glargine,Hum.rec.anlog) 100 Unit/1 Ml Insuln.pen 20 Unit SQ QHS 06/22/20 Reported Impression . IMPRESSION: 1. Abnormal chest x-ray. 2. COVID-19 pneumonia. 3. Obesity, probable obstructive sleep apnea-hypopnea syndrome. 4. Hypertension. 5. Diabetes mellitus. Plan . We will continue current supportive oxygen supplementation Dexamethasone DVT prophylaxis Up to chair PLAN AND RECOMMENDATIONS: 1. Titrate FiO2 to keep O2 saturation 92%. 2. Continue dexamethasone. He is out of the window for remdesivir. 3. D-dimer. nl 5. Lovenox for DVT prophylaxis. 6. Pepcid for stress ulcer prophylaxis. 7. The findings and recommendations were discussed with the patient. SWEETIE SALES MD May 25, 2021 07:40
[2021-05-25 08:59] LABS: BASO # 0.1 x10^3/uL (0.0-0.2); BASO % 1 % (0-3); EOS % 0 % (0-3); HEMOGLOBIN 14.8 g/dL (13.0-17.5); LYMPH # 1.2 x10^3/uL (1.0-4.8); LYMPH % 16 % (24-48); MEAN CORPUSCULAR HEMOGLOBIN 30 pg (25-35); MEAN CORPUSCULAR HGB CONC 34 g/dL (31-37); MEAN CORPUSCULAR VOLUME 88 fL (79-100); MONO # 0.6 x10^3/uL (0.0-1.1); MONO % 8 % (0-9); NEUT # 5.5 x10^3/uL (1.8-7.7); NEUT % 75 % (31-73); PLATELET COUNT 332 x10^3/uL (140-400); RED BLOOD COUNT 4.87 x10^6/uL (4.30-5.70); RED CELL DISTRIBUTION WIDTH 13.1 % (11.5-14.5); WHITE BLOOD COUNT 7.3 x10^3/uL (4.0-11.0)
[2021-05-25] MEDS: MUPIROCIN 2 % OINTMENT 22GM TUBE. TP SCH ×2 (09:00→14:00)
[2021-05-25] MEDS: FAMOTIDINE 20 MG TABLET. PO SCH ×2 (09:00→21:15)
[2021-05-25 09:20] LABS: ALBUMIN 2.5 g/dL (3.4-5.0); ALBUMIN/GLOBULIN RATIO 0.5 (1.0-1.7); CALCIUM 8.8 mg/dL (8.5-10.1); CREATININE 0.9 mg/dL (0.7-1.3); POTASSIUM 3.8 mmol/L (3.5-5.1); TOTAL BILIRUBIN 0.5 mg/dL (0.2-1.0); TOTAL PROTEIN 7.4 g/dL (6.4-8.2)
[2021-05-25] MEDS: ENOXAPARIN 40 MG/0.4 ML SYRINGE. SQ SCH ×2 (09:31→21:15)
[2021-05-25] MEDS: BENZONATATE 100 MG CAPSULE. PO SCH ×3 (09:32→21:15)
[2021-05-25] MEDS: INSULIN LISPRO 300 UNITS/3 ML VIAL. SQ SCH ×3 (09:32→17:18)
[2021-05-25] MEDS: DEXAMETHASONE SOD PHOS 4 MG/ML VIAL IVP SCH (09:33)
[2021-05-25 11:00] VITALS: BP 151/91
--- NOTE | 2021-05-25 11:24 | NUR ---
SW following. Discussed with RN, pt from home, 5L (does not use oxygen at home), ada diet. COVID-19 positive. Pulmonology following. Med Assist following for self pay status. SW will continue to follow.
--- NOTE | 2021-05-25 13:55 | PDOC ---
[employer] PROGRESS NOTE Date of Service DOS: DATE: 05/25/21 TIME: 13:53 Chief Complaint Chief Complaint COVID-19 pneumonia Obesity class I Concern for OHS History of diabetes mellitus type 2 History of hypertension Pulmonology consult Continue with O2 supplementation to keep O2 sats greater than 92% Out of the window for Remdesivir but continue with dexamethasone Lovenox for DVT prophylaxis Protonix for GI prophylaxis History of Present Illness History of Present Illness 50-year-old man who does not have a continuity source of primary care due to lack of medical insurance. He was diagnosed with COVID on 05/14. His 6-year-old daughter brought it home from school and everyone in the house has become ill including six children and 3 adults. Everybody is on the mend, but his symptoms now 10 days and worsened with increasing cough, congestion, wheezing and he just did not feel that he could keep on top of his respiratory symptoms. I am seeing him now nearly 24 hours after admission and he is feeling better with oxygen supplementation. He is happy that his fever has defervesced some as the high fevers were causing quite a bit of discomfort as well. He has also noted loose stools. The patient tells me that he was diagnosed with diabetes one year ago, but trying to find medical insurance that covered the insulin well, it was a challenge and so he has mostly been off of his medications. He was not aware of the ability to buy insulin at [facility] without a prescription. He denies any nausea, vomiting, chest pain, or palpitations. He has been up and moving about the room and his wheezing and dyspnea has improved with low dose oxygen supplementation. All other systems are reviewed and negative. 05/24/2021 Patient examined chart reviewed today is hospital day 3 for this patient with acute hypoxic respiratory failure secondary to COVID-19 pneumonia. He is feeling worse overnight with more cough, congestion, sputum production, and dyspnea. He has come up on his oxygen requirements now at 5 L nasal cannula. We will augment his cough regimen appreciate subspecialty support. Sugar levels are high with his infection and the steroid treatment will increase his glargine dose. All other systems reviewed and negative 05/25/2021 No acute events overnight. Patient seen and examined bedside. Patient does feel better and has still has a cough. Saturating 91% on 5 L nasal cannula. Glucose measurements have been in the mid to high 30s. Will adjust insulin regimen. Patient's chart, labs, images were reviewed and discussed with RN Vitals/I&O Vitals/I&O: Vital Signs Date Time Temp Pulse Resp B/P (MAP) Pulse Ox O2 Delivery O2 Flow Rate FiO2 05/25/21 11:00 98.0 75 20 151/91 (111) 93 Nasal Cannula 5.0 98.0 I & O 05/24/21 05/24/21 05/25/21 15:00 23:00 07:00 Intake Total 240 ml Output Total 375 ml Balance 240 ml -375 ml Physical Exam General: Alert, Oriented X3 Heart: Regular rate Lungs: Clear Abdomen: No tenderness Extremities: No edema Skin: No significant lesion Labs Labs: Laboratory Tests Test 05/24/21 16:49 05/24/21 20:29 05/24/21 22:54 05/25/21 07:42 Glucose (Fingerstick) 372 mg/dL (70-99) 393 mg/dL (70-99) 264 mg/dL (70-99) 235 mg/dL (70-99) Test 05/25/21 08:40 05/25/21 11:54 White Blood Count 7.3 x10^3/uL (4.0-11.0) Red Blood Count 4.87 x10^6/uL (4.30-5.70) Hemoglobin 14.8 g/dL (13.0-17.5) Hematocrit 43.0 % (39.0-53.0) Mean Corpuscular Volume 88 fL (79-100) Mean Corpuscular Hemoglobin 30 pg (25-35) Mean Corpuscular Hemoglobin Concent 34 g/dL (31-37) Red Cell Distribution Width 13.1 % (11.5-14.5) Platelet Count 332 x10^3/uL (140-400) Neutrophils (%) (Auto) 75 % (31-73) Lymphocytes (%) (Auto) 16 % (24-48) Monocytes (%) (Auto) 8 % (0-9) Eosinophils (%) (Auto) 0 % (0-3) Basophils (%) (Auto) 1 % (0-3) Neutrophils # (Auto) 5.5 x10^3/uL (1.8-7.7) Lymphocytes # (Auto) 1.2 x10^3/uL (1.0-4.8) Monocytes # (Auto) 0.6 x10^3/uL (0.0-1.1) Eosinophils # (Auto) 0.0 x10^3/uL (0.0-0.7) Basophils # (Auto) 0.1 x10^3/uL (0.0-0.2) Erythrocyte Sedimentation Rate 90 (0-15) Sodium Level 137 mmol/L (136-145) Potassium Level 3.8 mmol/L (3.5-5.1) Chloride Level 103 mmol/L (98-107) Carbon Dioxide Level 26 mmol/L (21-32) Anion Gap 8 (6-14) Blood Urea Nitrogen 16 mg/dL (8-26) Creatinine 0.9 mg/dL (0.7-1.3) Estimated GFR (Cockcroft-Gault) 89.0 BUN/Creatinine Ratio 18 (6-20) Glucose Level 230 mg/dL (70-99) Calcium Level 8.8 mg/dL (8.5-10.1) Total Bilirubin 0.5 mg/dL (0.2-1.0) Aspartate Amino Transf (AST/SGOT) 24 U/L (15-37) Alanine Aminotransferase (ALT/SGPT) 31 U/L (16-63) Alkaline Phosphatase 94 U/L (46-116) C-Reactive Protein, Quantitative 92.2 mg/L (0-3.3) Total Protein 7.4 g/dL (6.4-8.2) Albumin 2.5 g/dL (3.4-5.0) Albumin/Globulin Ratio 0.5 (1.0-1.7) Glucose (Fingerstick) 270 mg/dL (70-99) Comment Review of Relevant I have reviewed the following items tasha (where applicable) has been applied. Medications: Current Medications Medications (Trade) Dose Ordered Sig/Dany Route PRN Reason Start Time Stop Time Status Last Admin Dose Admin Insulin Glargine (Lantus Syringe) 30 unit HS SQ 05/24/21 21:00 05/24/21 21:12 Benzonatate (Tessalon Perle) 100 mg [id number] PO 05/24/21 14:00 05/25/21 09:32 Insulin Human Lispro (HumaLOG) 10 units 1X ONCE SQ 05/24/21 21:00 05/24/21 21:01 DC 05/24/21 21:12 Justifications for Admission Other Justification LISSA BECERRA MD May 25, 2021 13:55
[2021-05-25 15:00] VITALS: BP 150/85
[2021-05-25 19:00] VITALS: BP 157/91
[2021-05-25] MEDS: INSULIN GLARGINE SYRINGE. SQ SCH (21:23)
[2021-05-25 23:00] VITALS: BP 144/92
[2021-05-26 03:00] VITALS: BP 133/83
[2021-05-26 07:59] VITALS: BP 137/87
--- NOTE | 2021-05-26 09:00 | PDOC ---
PULMONARY PROGRESS NOTES DATE: 05/26/21 TIME: 08:59 Subjective Patient not more short of air Vitals Vital Signs Date Time Temp Pulse Resp B/P (MAP) Pulse Ox O2 Delivery O2 Flow Rate FiO2 05/26/21 03:00 98.2 95 18 133/83 (100) Nasal Cannula 5.0 98.2 05/25/21 11:00 93 Comments on 02 no distress rrr no accessory muscle use abd obese Lungs: Clear Labs Laboratory Tests Test 05/24/21 12:37 05/24/21 16:49 05/24/21 20:29 05/24/21 22:54 Glucose (Fingerstick) 296 mg/dL (70-99) 372 mg/dL (70-99) 393 mg/dL (70-99) 264 mg/dL (70-99) Test 05/25/21 07:42 05/25/21 08:40 05/25/21 11:54 05/25/21 17:01 Glucose (Fingerstick) 235 mg/dL (70-99) 270 mg/dL (70-99) 298 mg/dL (70-99) White Blood Count 7.3 x10^3/uL (4.0-11.0) Red Blood Count 4.87 x10^6/uL (4.30-5.70) Hemoglobin 14.8 g/dL (13.0-17.5) Hematocrit 43.0 % (39.0-53.0) Mean Corpuscular Volume 88 fL (79-100) Mean Corpuscular Hemoglobin 30 pg (25-35) Mean Corpuscular Hemoglobin Concent 34 g/dL (31-37) Red Cell Distribution Width 13.1 % (11.5-14.5) Platelet Count 332 x10^3/uL (140-400) Neutrophils (%) (Auto) 75 % (31-73) Lymphocytes (%) (Auto) 16 % (24-48) Monocytes (%) (Auto) 8 % (0-9) Eosinophils (%) (Auto) 0 % (0-3) Basophils (%) (Auto) 1 % (0-3) Neutrophils # (Auto) 5.5 x10^3/uL (1.8-7.7) Lymphocytes # (Auto) 1.2 x10^3/uL (1.0-4.8) Monocytes # (Auto) 0.6 x10^3/uL (0.0-1.1) Eosinophils # (Auto) 0.0 x10^3/uL (0.0-0.7) Basophils # (Auto) 0.1 x10^3/uL (0.0-0.2) Erythrocyte Sedimentation Rate 90 (0-15) Sodium Level 137 mmol/L (136-145) Potassium Level 3.8 mmol/L (3.5-5.1) Chloride Level 103 mmol/L (98-107) Carbon Dioxide Level 26 mmol/L (21-32) Anion Gap 8 (6-14) Blood Urea Nitrogen 16 mg/dL (8-26) Creatinine 0.9 mg/dL (0.7-1.3) Estimated GFR (Cockcroft-Gault) 89.0 BUN/Creatinine Ratio 18 (6-20) Glucose Level 230 mg/dL (70-99) Calcium Level 8.8 mg/dL (8.5-10.1) Total Bilirubin 0.5 mg/dL (0.2-1.0) Aspartate Amino Transf (AST/SGOT) 24 U/L (15-37) Alanine Aminotransferase (ALT/SGPT) 31 U/L (16-63) Alkaline Phosphatase 94 U/L (46-116) C-Reactive Protein, Quantitative 92.2 mg/L (0-3.3) Total Protein 7.4 g/dL (6.4-8.2) Albumin 2.5 g/dL (3.4-5.0) Albumin/Globulin Ratio 0.5 (1.0-1.7) Test 05/25/21 19:52 05/26/21 08:07 Glucose (Fingerstick) 272 mg/dL (70-99) 198 mg/dL (70-99) Laboratory Tests Test 05/25/21 11:54 05/25/21 17:01 05/25/21 19:52 05/26/21 08:07 Glucose (Fingerstick) 270 mg/dL (70-99) 298 mg/dL (70-99) 272 mg/dL (70-99) 198 mg/dL (70-99) Medications Active Scripts Medications Dose Route/Sig Max Daily Dose Days Date Category [reports no home meds] 05/23/21 Reported Lantus (Insulin Glargine,Hum.rec.anlog) 100 Unit/1 Ml Vial 20 Unit SQ HS 11/09/20 Rx Novolog (Insulin Aspart) 100 Unit/1 Ml Vial 10 Unit SQ TIDAC 11/09/20 Rx Mupirocin Ointment (Mupirocin) 22 Gm Oint...g. 1 Devendra TP TID 11/09/20 Rx Novolog Flexpen (Insulin Aspart) 100 Unit/1 Ml Insuln.pen 10 Units SQ TIDAC 06/22/20 Reported Lantus Solostar (Insulin Glargine,Hum.rec.anlog) 100 Unit/1 Ml Insuln.pen 20 Unit SQ QHS 06/22/20 Reported Impression . IMPRESSION: 1. Abnormal chest x-ray. 2. COVID-19 pneumonia. 3. Obesity, probable obstructive sleep apnea-hypopnea syndrome. 4. Hypertension. 5. Diabetes mellitus. Plan . We will continue current supportive oxygen supplementation Dexamethasone DVT prophylaxis Up to chair PLAN AND RECOMMENDATIONS: 1. Titrate FiO2 to keep O2 saturation 92%. 2. Continue dexamethasone. He is out of the window for remdesivir. 3. D-dimer. nl 5. Lovenox for DVT prophylaxis. 6. Pepcid for stress ulcer prophylaxis. 7. The findings and recommendations were discussed with the patient. SWEETIE SALES MD May 26, 2021 08:59
[2021-05-26] MEDS: FAMOTIDINE 20 MG TABLET. PO SCH (09:37)
[2021-05-26] MEDS: BENZONATATE 100 MG CAPSULE. PO SCH (09:38)
[2021-05-26] MEDS: DEXAMETHASONE SOD PHOS 4 MG/ML VIAL IVP SCH (09:38)
[2021-05-26] MEDS: ENOXAPARIN 40 MG/0.4 ML SYRINGE. SQ SCH (09:38)
[2021-05-26] MEDS: INSULIN LISPRO 300 UNITS/3 ML VIAL. SQ SCH ×2 (09:39→11:53)
--- NOTE | 2021-05-26 09:45 | NUR ---
Pt stated he wants to go home. This RN explained his oxygen requirements (6L NC) are too high at this point to go home. Pt still adamant on leaving. States that "I'm going to be homeless if I stay in the hospital." This RN explained oxygen would be $120 per month and pt agreed to pay it. He stated that "is cheaper then a hospital stay." Dr. Rodríguez notified. Holding off on ordering a 6 minute walk at this time.
[2021-05-26 11:45] VITALS: BP 153/95
--- NOTE | 2021-05-26 12:03 | NUR ---
Pt stated "Tell that doctor I am ready to go." This RN explained again his oxygen requirements are too high. Pt pointed to oxygen on wall and said "ain't that at 3 or 4 L." This RN not sure when his oxygen was turned down. SpO2 checked 91-95% on 3L NC. Dr. Rodríguez notified. 6 minute walk ordered. Will continue to monitor.
[2021-05-26] MEDS ORDERED: PRED20TA PO (13:34)
--- NOTE | 2021-05-26 13:36 | DISCH ---
DISCHARGE INSTRUCTIONS Condition on Discharge Condition on Discharge: Stable Activity After Discharge Activity Instructions for Disc: Activity as tolerated Lifting Instructions after Dis: Do not lift >10 pounds Exercise Instruction after Dis: Walk 15 min, 3 x per day Driving Instructions after Dis: Do not drive today Weight Bearing Status after Di: As tolerated Diet after Discharge Diet after Discharge: Cardiac, Diabetic No Calorie Level Diet Texture: Regular Liquid Texture: Thin Liquid Swallowing Supervision: None needed Follow-Up Follow up with: PCP within 2 weeks of discharge Follow Up With: Pulmonology as needed Treatment/Equipment after DC Adaptive Equipment Issued: None LISSA BECERRA MD May 26, 2021 13:36
--- NOTE | 2021-05-26 14:00 | NUR ---
Discharge Note: JUDY RODRIGUEZ [address] [place] [address] Discharge instructions and discharge home medications reviewed with Patient and a copy given. All questions have been answered and understanding verbalized. The following instructions and handouts were given: f/u with PCP within two weeks. COVID-19 discharge instructions given to patient. Discontinued lines and drains: Peripheral IV intact. Patient discharged to Home or Self Care with Family Member via [facility]. All belongings in personal plastic bag at the time of discharge.
--- NOTE | 2021-05-27 21:11 | PDOC3 ---
[facility]-Discharge Summary Date of Admission: Date of Admission: May 23, 2021 Date of Discharge: Date of Discharge: May 26, 2021 Discharge Diagnosis: Discharge Diagnosis: COVID-19 pneumonia Obesity class I Concern for OHS History of diabetes mellitus type 2 History of hypertension Hospital Course: Hospital Course: 50-year-old man who does not have a continuity source of primary care due to lack of medical insurance. He was diagnosed with COVID on 05/14. His 6-year-old daughter brought it home from school and everyone in the house has become ill including six children and 3 adults. Everybody is on the mend, but his symptoms now 10 days and worsened with increasing cough, congestion, wheezing and he just did not feel that he could keep on top of his respiratory symptoms. I am seeing him now nearly 24 hours after admission and he is feeling better with oxygen supplementation. He is happy that his fever has defervesced some as the high fevers were causing quite a bit of discomfort as well. He has also noted loose stools. The patient tells me that he was diagnosed with diabetes one year ago, but trying to find medical insurance that covered the insulin well, it was a challenge and so he has mostly been off of his medications. He was not aware of the ability to buy insulin at [facility] without a prescription. He denies any nausea, vomiting, chest pain, or palpitations. He has been up and moving about the room and his wheezing and dyspnea has improved with low dose oxygen supplementation. All other systems are reviewed and negative. 05/24/2021 Patient examined chart reviewed today is hospital day 3 for this patient with acute hypoxic respiratory failure secondary to COVID-19 pneumonia. He is feeling worse overnight with more cough, congestion, sputum production, and dyspnea. He has come up on his oxygen requirements now at 5 L nasal cannula. We will augment his cough regimen appreciate subspecialty support. Sugar levels are high with his infection and the steroid treatment will increase his glargine dose. All other systems reviewed and negative 05/25/2021 No acute events overnight. Patient seen and examined bedside. Patient does feel better and has still has a cough. Saturating 91% on 5 L nasal cannula. Glucose measurements have been in the mid to high 30s. Will adjust insulin regimen. Patient's chart, labs, images were reviewed and discussed with RN By day of discharge, 6 min walk test completed and patient did not need any O2 requirements. pt was clinically stable and ready for discharge. Rest of hospital course was uneventful Disposition: Disposition/Orders: D/C to Home Activity: Activity: Resume previous activity Diet: Diet: Cardiac Medications: Home Meds Active Scripts Prednisone (PREDNISONE) 20 Mg Tablet, 1 TAB PO DAILY for covid pneumonia for 5 Days, #5 TAB Prov:LISSA BECERRA MD 05/26/21 Insulin Glargine,Hum.rec.anlog (LANTUS) 100 Unit/1 Ml Vial, 20 UNIT SQ HS, #100 EACH Prov:CORINNA GUTIÉRREZ MAPPING TECHNICIAN 11/09/20 Insulin Aspart (NOVOLOG) 100 Unit/1 Ml Vial, 10 UNIT SQ TIDAC, #100 EACH Prov:CORINNA GUTIÉRREZ MAPPING TECHNICIAN 11/09/20 Reported Medications [reports no home meds] No Conflict Check 05/23/21 Insulin Aspart (NOVOLOG FLEXPEN) 100 Unit/1 Ml Insuln.pen, 10 UNITS SQ TIDAC for hyperglycemia, SYR 06/22/20 Insulin Glargine,Hum.rec.anlog (LANTUS SOLOSTAR) 100 Unit/1 Ml Insuln.pen, 20 UNIT SQ QHS for hyperglycemia, #15 ML 3 Refills 06/22/20 Discontinued Reported Medications Doxycycline Hyclate (DOXYCYCLINE HYCLATE) 100 Mg Capsule, 1 CAP PO BID for antibiotic, #14 CAP 06/22/20 Discontinued Scripts Doxycycline Hyclate (DOXYCYCLINE HYCLATE) 100 Mg Tablet, 1 TAB PO BID, #20 TAB Prov:CORINNA GUTIÉRREZ MAPPING TECHNICIAN 11/09/20 Scheduled Insulin Aspart (Novolog Flexpen), 10 UNITS SQ TIDAC, (Reported) Insulin Aspart (Novolog), 10 UNIT SQ TIDAC Insulin Glargine,Hum.rec.anlog (Lantus Solostar), 20 UNIT SQ QHS, (Reported) Insulin Glargine,Hum.rec.anlog (Lantus), 20 UNIT SQ HS Prednisone (Prednisone), 1 TAB PO DAILY Miscellaneous Medications [reports no home meds], (Reported) Discontinued Medications Doxycycline Hyclate (Doxycycline Hyclate), 1 CAP PO BID, (Reported) Doxycycline Hyclate (Doxycycline Hyclate), 1 TAB PO BID Total Time: Total Time: Total time spent was 32 minutes in preparing scripts, discharge planning with SW and RN, and preparing this discharge summary. Patient seen and examined on day of discharge. Justicifation of Admission Dx: Justifications for Admission: Justification of Admission Dx: Yes Respiratory Failure: Severe Resp Distress LISSA BECERRA MD May 27, 2021 21:11
== END 2021-05-26 14:00 | disposition home or self-care (01) | DRG 177 ==
LOC: ER 15:40 → 5 NORTH 20:11 → OBSVTOIN 05-23 21:57
PROVIDERS: ADMIT Family Medicine; ATTEND Family Medicine
DX: U07.1 COVID-19 (principal); J12.82 Pneumonia due to coronavirus disease 2019; J96.01 Acute respiratory failure with hypoxia; E11.65 Type 2 diabetes mellitus with hyperglycemia; E66.9 Obesity, unspecified; E78.00 Pure hypercholesterolemia, unspecified; E78.5 Hyperlipidemia, unspecified; G47.33 Obstructive sleep apnea (adult) (pediatric); I10 Essential (primary) hypertension; Z87.891 Personal history of nicotine dependence; F32.9 Major depressive disorder, single episode, unspecified; Z68.33 Body mass index [BMI] 33.0-33.9, adult
CPT/HCPCS: 36415; 71045; 80053; 82962; 83036; 85025; 85379; 85651; 86140; 87426; 87804; 94618; 96374; G0378; G0379; J1100; J1650; J1815; 99285-25